=== PATIENT | female | born 1965 | race Caucasian/White ===

== ENCOUNTER → 2017-03-18 | Outpatient (CLI) | payer OTHER ==
[~2017-03-18] MED LIST: ASPIRIN81 M2 PO; COUMADIN PO; FISH OIL 1,0001 EAC3 PO; HYDROCODON-ACE1 EAC5 PO
--- NOTE | ~2017-03-18 | MY29 ---
[facility] A Service of [facility] RADIOLOGY TEXT RESULTS PATIENT: AUSTEN OLIVAREZ LOCATION: [facility] : 61 UNIT #: [id number] AGE: [address]: Haydee Callahan SEX: F ORDER DR: [id number] [facility] [address] [place], [place] [address] [id number] O MR#: [id number] Acc #: [id number] NAME: AUSTEN OLIVAREZ : 1965 SEX: F STUDY DATE/TIME: 03/18/2017 16:20 UNIT: [facility] ROOM: STUDY DESCRIPTION: MY BIB SCREENING W/ CAD BILAT Attending Physician: Haydee Callahan A.P.R.N. Referring Physician: Haydee Callahan A.P.R.N. Ordering Physician: Haydee Callahan A.P.R.N. Primary Care Physician: Haydee Callahan A.P.R.N. MEDICAL IMAGING REPORT This report is preliminary unless electronic signature is present EXAM Bilateral digital screening mammogram with CAD, 03/18/2017. INDICATIONS 51-year-old female for routine screening. No reported problems. No personal or family history of breast cancer. No surgeries. TECHNIQUE CC and MLO views of the breasts were obtained and reviewed with an FDA-approved CAD device. COMPARISON 03/22/2014 FINDINGS Breast parenchyma is composed of scattered fibroglandular densities. The pattern is symmetric and unchanged. There is no new dominant nodule, mass or suspicious clustered microcalcifications. The patient has a history of chronic nipple inversion on the right which is stable. No new adenopathy. IMPRESSION 1. Benign screening mammogram. One year follow up recommended. 2. BIRADS 2. Patients over the age of 40 are entered into a reminder system with target due date for the next mammogram. A result letter will also be sent to the patient. BIRADS: 2 Benign findings. Dictated by... Augie Sorensen M.D. [facility] A Service [facility] RADIOLOGY TEXT RESULTS PATIENT: AUSTEN OLIVAREZ LOCATION: [facility] : 61 UNIT #: [id number] AGE: [address]: Haydee Callahan SEX: F ORDER DR: THIS IS AN ELECTRONICALLY VERIFIED REPORT Augie Sorensen M.D. at 03/19/2017 2:39 PM Kristofer TD: 03/19/2017 00:13 JOB #: [id number] MEDICAL IMAGING REPORT Page 1 of 1 COPY
== END | disposition home or self-care (01) ==
LOC: CWCC 16:01
DX: Z12.31 Encounter for screening mammogram for malignant neoplasm of breast (principal); Z78.0 Asymptomatic menopausal state
CPT/HCPCS: G0202